=== PATIENT | female | born 2005 | race Caucasian/White ===

== ENCOUNTER 2024-03-13 18:50 | Inpatient (IN) ==
[2024-03-13 19:39] LABS: ABS Eosinophils 0.2 10^3/uL (0.0-0.5); ABS Lymphocytes 1.9 10^3/uL (1.0-4.8); ABS Monocytes 0.5 10^3/uL (0.0-0.9); ABS Neutrophils 5.3 10^3/uL (1.5-7.6); Eosinophil % 2.7 %; Hematocrit 40.6 % (35-45); Hemoglobin 13.8 g/dL (11.5-14.3); Lymphocyte % 23.8 %; Mean Corpuscular Hemoglobin 29.5 pg (27-33); Mean Corpuscular Hgb Conc 34.1 g/dL (31-36); Mean Corpuscular Volume 86.6 fL (80-97); Mean Platelet Volume 8.9 fL (7.5-11.2); Platelet Count 268 10^3/uL (150-450); Red Blood Count 4.68 10^6/uL (3.63-4.92); Red Cell Distribution Width 14.6 % (12-17)
[2024-03-13 20:16] LABS: Urine Appearance Clear; Urine Bilirubin Negative (Negative); Urine Blood Negative (Negative); Urine Color Yellow; Urine Glucose Negative (Negative); Urine Ketones Negative (Negative); Urine Nitrite Negative (Negative); Urine Protein Negative (Negative); Urine Specific Gravity 1.023 (1.002-1.030); Urine Urobilinogen Negative (Negative)
[2024-03-13 20:26] LABS: ALT 31 U/L (7-52); AST 20 U/L (13-39); Acetaminophen < 15 mcg/mL; Albumin 4.6 g/dL (3.2-5.2); Albumin/Globulin Ratio 1.9 (1-3); Alcohol, S < 13 mg/dL (<13); Alkaline Phosphatase 73 U/L (35-149); Anion Gap 7 mmol/L (2-16); Blood Urea Nitrogen 9 mg/dL (6-24); CO2 Carbon Dioxide 21 mmol/L (22-32); Calcium 9.8 mg/dL (8.6-10.3); Chloride 108 mmol/L (101-111); Creatinine, Serum 0.87 mg/dL (0.51-0.95); Globulin 2.4 g/dL (2-4); Glucose 86 mg/dL (70-100); Potassium 4.4 mmol/L (3.5-5.0); Salicylate < 2.50 mg/dL (<30); Sodium 136 mmol/L (135-145); Total Bilirubin 0.3 mg/dL (0.2-1.0); eGFR CKD-EPI 97.8 (>60)
[2024-03-13 20:33] LABS: HCG Pregnancy < 0.60 mIU/mL
[2024-03-13 20:33] LABS: Urine Benzodiazepine Screen None Detected (None Detect); Urine Cannabinoids Screen Presumptive Positive (None Detect); Urine Opiates Screen None Detected (None Detect)
[2024-03-13 20:42] LABS: TSH Ultra Thyroid Stim Horm 0.72 mcIU/mL (0.34-5.60)
[2024-03-14] MEDS ORDERED: Al Hydrox/Mg Hydrox/Simet LIQ 30 ML UDC PO PRN (11:23)
[2024-03-15 01:12] VITALS: BP 109/73
[2024-03-15] MEDS: Vitamin THERAPEUTIC TAB PO SCH (09:45)
[2024-03-16] MEDS: Conjugated Estrogens 0.3mg TAB PO ONE (15:38)
== END 2024-03-16 18:40 | disposition home or self-care (01) | DRG 882 ==
LOC: ED 18:50 → EDHOLD 03-14 11:23 → BSU 03-14 12:24
PROVIDERS: ADMIT Psychiatry & Neurology Psychiatry; ATTEND Psychiatry & Neurology Psychiatry